=== PATIENT | female | born 1985 | race Caucasian/White ===

== ENCOUNTER 2018-12-18 12:20 | Outpatient (CLI) | payer OTHER ==
[~2018-12-18 12:20] MED LIST: IRON 100 PLUS1 EACH PO; PRENATAL TABLE1 EAC4 PO
== END 2018-12-18 12:21 | disposition home or self-care (01) ==
LOC: SONOGRAMA 12:20
DX: N60.11 Diffuse cystic mastopathy of right breast (principal); N60.12 Diffuse cystic mastopathy of left breast; R92.0 Mammographic microcalcification found on diagnostic imaging of breast

== ENCOUNTER 2019-09-14 06:04 | Day surgery (SDC) | payer OTHER | END 2019-09-14 18:50 | disposition home or self-care (01) | LOC: CIR.AMB 06:04 | DX: D24.2 Benign neoplasm of left breast (principal) ==

== ENCOUNTER 2022-11-12 06:30 | Day surgery (SDC) | payer OTHER ==
[~2022-11-12] VITALS: Ht 160 cm; Wt 51.7 kg
== END 2022-11-12 22:10 | disposition home or self-care (01) ==
LOC: CIR.AMB 06:30
PROVIDERS: ATTEND Surgery
DX: C50.411 Malignant neoplasm of upper-outer quadrant of right female breast (principal); D48.62 Neoplasm of uncertain behavior of left breast; N60.22 Fibroadenosis of left breast; N60.02 Solitary cyst of left breast; N60.82 Other benign mammary dysplasias of left breast; Z90.13 Acquired absence of bilateral breasts and nipples; N64.81 Ptosis of breast; I10 Essential (primary) hypertension; Z20.822 Contact with and (suspected) exposure to COVID-19